=== PATIENT | female | born 1995 | race Caucasian/White ===

== ENCOUNTER 2017-03-16 19:12 | Observation (INO) | payer OTHER ==
[~2017-03-16] VITALS: Ht 177.8 cm; Wt 103.3 kg
--- NOTE | 2017-03-16 20:40 | DIAGNOSTIC IMAGING REPORT ---
PROCEDURE: CT ABD/PELVIS WITH CONTRAST INDICATION: Mild right abdominal pain. Recent laparoscopic cholecystectomy. TECHNIQUE: 145 ml of Isovue 300 were injected intravenously and axial images were obtained of the entire abdomen and pelvis with sagittal and coronal reformations. COMPARISON: None. FINDINGS: ABDOMEN: Status post cholecystectomy (surgical clips) with normal postoperative appearance. Liver is normal. Mild to moderate splenomegaly (15.3 cm). Pancreas, kidneys, and aorta are normal. Bowel pattern is normal, including appendix. PELVIS: The 4.2 cm right ovarian cyst (just above the bladder). No evidence of free fluid. Left ovary is normal. There is a T-shaped IUD within the endometrial canal. IMPRESSION: 1. Status post cholecystectomy with normal postoperative appearance. 2. Mild to moderate splenomegaly (15.3 cm). 3. Normal appendix. 4. There is a 4.5 right ovarian cyst. No evidence of free fluid. 5. There is a T-shaped IUD within the endometrial canal. 6. Findings discussed with CANDICE Webb. All CT scans at this facility use dose modulation, iterative reconstruction, and/or weight-based dosing when appropriate to reduce radiation dose to as low as reasonably achievable.
--- NOTE | 2017-03-16 21:49 | ED CLINICAL REPORT ---
Clinical Report - Physicians/Mid Levels [facility] [address] [place] [address] 03/16/2017 19:12 Patient: LYNDA VUONG Time Seen: 19:28; initial patient contact, initial documentation, patient care assumed. Arrived- By private vehicle. Historian- patient. HISTORY OF PRESENT ILLNESS Chief Complaint: VOMITING and DIARRHEA. This started today and is still present. It was abrupt in onset. No recent travel. She has had nausea and moderate, constant abdominal pain. The pain is described as generalized. She has had severe vomiting. The vomiting has occurred numerous times and has been bilious and blood-tinged. No feculent emesis, coffee-grounds emesis, frankly bloody emesis or unusually dark emesis. She has had moderate diarrhea (x5-6 episodes). This has occurred several times. It has been watery. No bloody, mucous containing or blood-tinged diarrhea. No black stools, constipation, flank pain, history of possible bad food exposure or known contact with a sick individual. No change in routine. Has not recently been camping or on antibiotics. The illness is described as moderate. Similar symptoms previously: Chronically, milder. Recent medical care: Not recently seen/assessed. REVIEW OF SYSTEMS The patient has had a subjective fever with chills. No muscle aches, difficulty with urination, dark urine, chest pain or difficulty breathing. Denies current . All systems otherwise negative, except as recorded above. PAST HISTORY See nurses notes. PROBLEMS: no known problems. ADDITIONAL SURGERIES: Adenoidectomy. Cholecystectomy. --19:22 Kayy Bullard R.N. SOCIAL HISTORY Light tobacco smoker. No alcohol use or drug use. No recent travel. Is a local resident. FAMILY HISTORY Negative. ADDITIONAL NOTES The nursing notes have been reviewed with agreement regarding the chief complaint, HPI, ROS, PMH and patient medications and allergies. PHYSICAL EXAM Vital Signs: 03/16/2017 19:16 BP: 144/88. HR: 90. RR: 18. O2 saturation: 99%. Temp: 99.1 F. Pain level now: 10/10. Have been reviewed as normal and appear to be correct. Appearance: Alert. Oriented X3. No acute distress. Eyes: Pupils equal, round and reactive to light. Eyes normal inspection. Neck: Normal inspection. Neck supple. CVS: Normal heart rate and rhythm. Heart sounds normal. Pulses normal. Respiratory: No respiratory distress. Breath sounds normal. Abdomen: Soft and nontender. Bowel sounds normal. No organomegaly. No mass. Back: Normal inspection. Skin: Skin warm and dry. Normal skin color. No rash. Normal skin turgor. Extremities: Extremities exhibit normal ROM. No lower extremity edema. Neuro: Oriented X 3. No motor deficit. No sensory deficit. LABS, X-RAYS, AND EKG Abdominal CT: . IMPRESSION: 1. Status post cholecystectomy with normal postoperative appearance. 2. Mild to moderate splenomegaly (15.3 cm). 3. Normal appendix. 4. There is a 4.5 right ovarian cyst. No evidence of free fluid. 5. There is a T-shaped IUD within the endometrial canal. 6. Findings discussed with CANDICE Webb. All CT scans at this facility use dose modulation, iterative reconstruction, and/or weight-based dosing when appropriate to reduce radiation dose to as low as reasonably achievable. Electronically Final signed by:Samuel Cooper MD 03/16/2017 8:34:49 PM. The study was interpreted by the radiologist and discussed with the radiologist. Interpretation time: 20:39. Laboratory Tests: CBC w Diff: (JUNG: 03/16/2017 19:25) ( MsgRcvd 03/16/2017 19:42) Final results Test Result Flag Units (Reference) WHITE BLOOD COUNT 12.9 H K/uL (4.5-11.5) RED BLOOD COUNT 5.42 H M/uL (4.00-5.20) HEMOGLOBIN 16.1 H gm/dL (12.0-16.0) HEMATOCRIT 48.2 H % (36.0-46.0) MEAN CELL VOLUME 89 fL (80-100) MEAN CORPUSCULAR HGB 30 pg (26-34) MEAN CORPUSCULAR HGB CONC 33 g/dL (31-37) RED CELL DISTRIBUTION WIDTH 14.7 % (11.6-14.8) PLATELET COUNT 578 H K/uL (150-400) NEUTROPHIL % 75.1 H % (50-75) LYMPH % 17.3 L % (25-40) MONO % 5.1 % (3-14) EOSINOPHIL % 1.6 % (0-4) BASOPHIL % 0.9 % (0-2) PT with INR: (JUNG: 03/16/2017 19:25) ( [facility] 03/16/2017 19:42) Final results Test Result Flag Units (Reference) INR 1.1 (0.8-1.2) Low Intensity Therapy: INR 1.5-2.0 PT range 18.5-23.1Mod.Intensity Therapy: INR 2.0-3.0 PT range 23.1-31.5High Intensity Therapy: INR 2.5-3.5 PT range 27.4-35.5High Intensity Therapy 2: INR 3.0-4.0 PT range 31.5-39.3 CMP: (JUNG: 03/16/2017 19:25) ( [facility] 03/16/2017 19:55) Final results Test Result Flag Units (Reference) GLUCOSE 89 mg/dL (70-110) BUN 12 mg/dL (7-18) CREATININE 0.9 mg/dL (0.6-1.3) Estimated GFR >60 mL/min Estimated GFR- >60 mL/min Note: Persistent reduction over 3 months in eGFR<60 mL/min/1.73 m2 defines CKD. Patients with eGFR values>=60 mL/min/1.73 m2 may also have CKD if evidence ofpersistent proteinuria. Additional information may be foundat www.kidney.org. SODIUM 143 mmol/L (136-145) POTASSIUM 3.5 mmol/L (3.5-5.1) CHLORIDE 104 mmol/L (98-107) CARBON DIOXIDE 27 mmol/L (21-32) CALCIUM 9.2 mg/dL (8.5-10.1) TOTAL PROTEIN 8.0 g/dL (6.4-8.2) ALBUMIN 4.4 g/dL (3.3-5.0) BILIRUBIN, TOTAL 1.5 H mg/dL (0.0-1.0) ALKALINE PHOSPHATASE 53 U/L (46-116) AST (SGOT) 6 L U/L (15-37) ALT (SGPT) 17 U/L (12-78) LIPASE 140 U/L (73-393) AMYLASE 60 U/L (25-115) BETA HCG, QUANTITATIVE Test not performed mIU/mL CANCELLED PER REQUEST.REFERENCE RANGE:Adult Males: <2 mIU/mLNon- Females: <6 mIU/mL Females:Approximate Approximate hCGGestational Age Range (mIU/mL) 0-1 week 0-501-2 weeks 40-3002-3 weeks 100-95677-8 weeks 500-14931-0 months 5,000-200,0002-3 months 10,000-100,0002nd trimester 3,000-50,0003rd trimester 1,000-50,000 . PROGRESS AND PROCEDURES Course of Care: 20:28 03/16/17. pt back from CT and still vomiting, Reglan ordered 2039. pt informed of results and tx plan discussed, mom at bedside and now telling me pt has had intermittent vomiting since Dec since gallbladder was removed 21:11 03/16/17. nurse reporting pt wants pain meds and is still vomiting. Discussed case with on-call health care provider, (Dr Quick here, aware of need for admit). Reviewed test results. Agreed upon treatment plan and decision to admit. Health care provider will see patient in ED. Differential Diagnosis: I considered gastritis, peptic ulcer disease, gastroesophageal reflux disease, gastroparesis, Crohn's disease, ulcerative colitis, small bowel obstruction, colonic obstruction, colon cancer, gastroenteritis, pancreatitis, viral syndrome, enterocolitis, urinary tract infection, hepatitis, sepsis, drugs and as a possible cause of vomiting in this patient. This is a partial list of diagnoses considered. Above considerations are based on history, physical exam, reassessment, laboratory data and other information. Differential diagnosis was discussed with patient. Disposition: Admitted to Acute Care. 21:49. Condition: good and stable. CLINICAL IMPRESSION Vomiting with nausea (irretractable). No dehydration or volume depletion. Not intractable or bilious. (Electronically signed by Vandana Vega A.R.N.P. 03/17/2017 12:05)
--- NOTE | 2017-03-16 21:49 | ED NURSING NOTES ---
Clinical Report - Nurses [place] [place] [address] [place] [address] 03/16/2017 19:12 Patient: LYNDA VUONG TRIAGE Triage time 19:16. Acuity: LEVEL 3. Chief Complaint: ABDOMINAL PAIN, NAUSEA, VOMITING and DIARRHEA and FEVER and CHILLS. --19:24 Kayy Bullard R.N. 19:16 03/16/17. BP: 144/88 taken on the left arm, while lying. HR: 90 (regular and normal rate). RR: 18 (regular and unlabored). O2 saturation: 99% on room air. Temp: 99.1 F (oral). Pain level now: 06/25. --19:24 Kayy Bullard R.N. Weight: 99.7 kg stated. Height/Length: 70 inches Per Patient. BMI: 31.5. --19:20 Kayy Bullard R.N. Medications None. --19:22 Kayy Bullard R.N. Allergies No Known Drug Allergy. --19:22 Kayy Bullard R.N. History Arrived by private vehicle. Historian: patient. Accompanied by family. Primary physician (formerly [facility], [facility]). This started today. Onset. (0700 AM). ( N/V/D since this morning, RUQ pain vomiting bright yellow emesis all day). PAST MEDICAL HX: Immunizations: up-to-date. Last normal menstrual period- no periods. Sexual history - sexually active. Uses an intrauterine device. SOCIAL HX: Light tobacco smoker (cigarette)- less than 1/2 a pack per day. No alcohol use or drug use. No infectious disease exposure. No known contact with a sick individual. ABUSE ASSESSMENT: No report of abuse. SELF HARM ASSESSMENT: A self harm assessment was performed. The patient answered "no" to the question "Have you recently felt down, depressed, or hopeless?", "Have you noticed less interest or pleasure in doing things?", "Do you have thoughts of harming or killing yourself?", "Are you here because you tried to hurt yourself?", "Have you ever tried to hurt yourself before today?", "Have you recently had thoughts about harming or killing others?" and "Do you have any dangerous items in your possession?". --24 Kayy Bullard R.N. PROBLEMS: no known problems. ADDITIONAL SURGERIES: Adenoidectomy. Cholecystectomy. --: Kayy Bullard R.N. Interventions ID band on patient. To treatment room. --:24 Kayy Bullard R.N. PHYSICAL ASSESSMENT To room via wheelchair. GENERAL / NEURO / PSYCH: Alert. Oriented X 4. Appears in pain and in distress. HEENT: Mucous membranes are pink. RESPIRATORY: Respirations not labored. Breath sounds within normal limits. CVS: Normal sinus rhythm noted. Capillary refill less than 2 seconds. GI / : The patient has had constant nausea. Bilious emesis noted. Has vomited numerous times. Abdominal tenderness in the right upper quadrant. Bowel sounds within normal limits. SKIN: Skin is warm and dry. --19:25 Kayy Bullard R.N. NURSING PROGRESS NOTES Patient gowned. Two patient identifiers checked. Call light placed in reach. Side rails up x 1. Bed placed in lowest position. Brakes of bed on. --19: Kayy Bullard R.N. Patient ready for evaluation- chart flagged. --19:25 Kayy Bullard R.N. 03/16/2017 Site #1 started via IV in the right antecubital space with an 20g angiocath, with aseptic technique and good blood return; one attempt. Blood drawn: rainbow set. Labeled in the presence of the patient and sent to the lab. Saline lock flushed with 10 mL saline. -- Marilee Gallegos 03/16/2017 Started bag #1 1000 mL IV Fluids IV NS (Saline); at 1000 mL/hr over 1 hour(s) via site #1. Allergies verified and confirmed 5 rights. IV patency established. IV site checked: no pain, redness, or swelling. IV flushed thoroughly pre- and post-medication administration. --27 Marilee Gallegos 2017 Zofran (Ondansetron HCl) IVP 4 mg given over 2 minute(s) via site #1. Allergies verified and confirmed 5 rights. IV patency established. IV site checked: no pain, redness, or swelling. IV flushed thoroughly pre- and post-medication administration. IVP given by RN. --19:34 Kayy Bullard R.N. 19:40 03/16/2017 Zofran (Ondansetron HCl) IVP 4 mg given over 2 minute(s) via site #1. Allergies verified and confirmed 5 rights. IV patency established. IV site checked: no pain, redness, or swelling. IV flushed thoroughly pre- and post-medication administration. IVP given by RN. --19:41 Kayy Bullard R.N. 20:00 03/16/2017 Toradol IVP 30 mg given over 2 minute(s) via site #1. Allergies verified and confirmed 5 rights. IV patency established. IV site checked: no pain, redness, or swelling. IV flushed thoroughly pre- and post-medication administration. IVP given by RN. --20:03 Kayy Bullard R.N. 19:55. ( PA notified orders received). GI / : The patient reports abdominal pain located in the RUQ is still present and worsening and currently severe, constant, described as sharp and associated with nausea and vomiting. --20:04 Kayy Bullard R.N. ( Mother at bedside, pt continues to vomit despite antiemetic, pt c/o severe abd pain Toradol given per order, will continue to monitor). --20:06 Kayy Bullard R.N. Patient transported to [place] by stretcher with tech. (20:11). --20:12 Kayy Bullard R.N. 20:50 03/16/2017 Site #2 started via IV in the left antecubital space with an 20g angiocath, with aseptic technique and good blood return; one attempt. Held. Saline lock flushed with 10 mL saline. --20:50 Marilee Gallegos 20:51 03/16/2017 Site #1 removed upon discharge. Catheter intact. Bandaid applied (CT reports the IV built up pressure and was no longer patent. Patient denies any pain at the IV site and there is no sign of infiltration present.). --20:51 Marilee Gallegos 20:58 03/16/2017 Reglan (Metoclopramide HCl) IVP 10 mg given over 2 minute(s) via site #2. Allergies verified and confirmed 5 rights. IV patency established. IV site checked: no pain, redness, or swelling. IV flushed thoroughly pre- and post-medication administration. IVP given by RN. --21:00 Kayy Bullard R.N. 21:25 03/16/2017 Morphine IVP 4 mg given over 2 minute(s) via site #2. Allergies verified, confirmed 5 rights and sedative warning given to the patient and patient's family. IV patency established. IV site checked: no pain, redness, or swelling. IV flushed thoroughly pre- and post-medication administration. IVP given by RN. --21:27 Kayy Bullard R.N. 21:03/16/2017 PHENERGAN (Promethazine HCl) IVP 12.5 mg given over 4 minute(s) via site #2. Allergies verified and confirmed 5 rights. IV patency established. IV site checked: no pain, redness, or swelling. IV flushed thoroughly pre- and post-medication administration. IVP given by RN. --21:27 Kayy Bullard R.N. 21:03/16/2017 Reglan IVP Response: no adverse reaction symptoms are the same. The patient feels the same. --21:28 Kayy Bullard R.N. Patient ID band checked for patient name and birthdate: patient confirmed. Instructions provided to collect clean catch urine and patient verbalized understanding. Clean catch urine collected with return of orange-colored cloudy urine; sample sent to lab for urinalysis, drug screen and HCG. Specimen labeled in the presence of the patient. Patient ID band checked for patient name and birthdate: patient confirmed. Throat swab obtained for rapid strep; labeled in the presence of the patient and sent to lab. Overall patient status is the same- she states feels the same. GI / : The patient reports vomiting is still present and currently moderate in severity, with emesis that is currently described as bilious. Two patient identifiers checked. Call light placed in reach. Side rails up x 2. Bed placed in lowest position. Brakes of bed on. --21:31 Kayy Bullard R.N. Overall patient status is improved- she states feels better. GI / : Bowel sounds within normal limits. --22:52 Kayy Bullard R.N. 22:45 03/16/17. BP: 122/69 taken on the right arm, while lying. HR: 52 (regular and bradycardic). RR: 18. O2 saturation: 99%. Temp: deferred. Pain level now: 02/23. --22:52 Kayy Bullard R.N. DISPOSITION / DISCHARGE Report was given to a nurse via a phone call. Report included patient's care, treatment, medications, reviewed medication reconcilliation, and condition (including any recent changes or anticipated changes). All questions were answered. Report was acknowledged and care was transferred. (Troy @2111). ( Report call to Troy). Patient's personal items; items were placed in belongings bag, given to the patient and transported with the patient. --22:54 Kayy Bullard R.N. 21:27 03/16/2017 IV Fluids IV NS Discontinued: bag #1 completed. Total amount infused: 1000 mL. IV patency established. IV site checked: no pain, redness, or swelling. IV flushed thoroughly. --22:55 Kayy Bullard R.N. 22:54 03/16/2017 Site #[address] upon admission; patent, no pain and no signs of infection or infiltration. Good blood return present. Flushed with 10 mL saline; flushes easily. --22:54 Kayy Bullard R.N. Departure time: 2337. Transported via stretcher by [employer] with IV. ( Floor called stated ready for pt at 2333, pt transported). --23:38 Kayy Bullard R.N. 23:35 03/16/17. BP: 128/64. HR: 61 (regular). RR: 18. O2 saturation: 95% on room air. Temp: 99.2 F (oral). Pain level now: 10/26. --23:38 Kayy Bullard R.N. Locked/Released at 03/16/2017 23:38 by Kayy Bullard R.N.
--- NOTE | 2017-03-16 21:49 | ED ORDER SUMMARY ---
..... Patient: LYNDA VUONG OrderSheet [facility] VisitID: [id number] [place] [address] 21y, F Registration Date/Time: 03/16/2017 ORDER SHEET Weight: 99.7 kg (stated) Allergies: No Known Drug Allergy GENERAL ORDERS: CBC w Diff Urgent (19:03/16/2017 CBradburn R.N. per protocol) (19:26 CBradburn R.N.) CMP Urgent (19:03/16/2017 CBradburn R.N. per protocol) (19:26 CBradburn R.N.) UA-Culture if indicated Urgent (19:03/16/2017 CBradburn R.N. per protocol) (Ack 19:33 AMcQuoid ER Tech1) (21:27 CBradburn R.N.) PT with INR Urgent (19:03/16/2017 CBradburn R.N. per protocol) (19:26 CBradburn R.N.) (Cancelled: Other19:34 HBivens A.R.N.P.) Amylase Urgent (19:26 03/16/2017 CBradburn R.N. per protocol) (19:26 CBradburn R.N.) Lipase Urgent (19:03/16/2017 CBradburn R.N. per protocol) (19:26 CBradburn R.N.) Urine Urgent (19:03/16/2017 CBradburn R.N. per protocol) (Ack 19:33 AMcQuoid ER Tech1) (21:27 CBradburn R.N.) Serum Quantitative Urgent (19:26 03/16/2017 CBradburn R.N. per protocol) (Ack 19:33 AMcQuoid ER Tech1) (19:34 HBivens A.R.N.P.) (Cancelled: Other19:34 HBivens A.R.N.P.) CT Abd/Pel w Cont (No) (pending) Urgent (19:35 03/16/2017 HBivens A.R.N.P.) (Ack 19:36 AMcQuoid ER Tech1) (20:11 CBradburn R.N.) Monoscreen Urgent (20:49 03/16/2017 HBivens A.R.N.P.) (20:51 AMcQuoid ER Tech1) Culture, Strep Screen Urgent (20:49 03/16/2017 HBivens A.R.N.P.) (Ack 20:51 AMcQuoid ER Tech1) (21:14 CBradburn R.N.) Urine Drug Screen Urgent (21:38 03/16/2017 HBivens A.R.N.P.) (Ack 21:40 AMcQuoid ER Tech1) (22:36 HSoule) MEDICATION ORDERS: Phenergan IV 12.5 mg (HIGH ALERT MEDICATION, NOW) (21:10 03/16/2017 HBivens A.R.N.P.) (21:27 CBradburn R.N.) IV FLUIDS: IV NS : initial bolus 1000 mL (1000 mL/hr), then 1000 mL/hr for X1 (NOW) (19:26 03/16/2017 CBradburn R.N. per protocol) (19:27 HSoule) Zofran IV 4 mg (NOW) (19:32 03/16/2017 CBradburn R.N. per protocol) (19:34 CBradburn R.N.) Zofran IV 4 mg (NOW) (19:37 03/16/2017 HBivens A.R.N.P.) (Ack 19:38 HSoule) (19:41 CBradburn R.N.) Toradol IV 30 mg (NOW) (19:56 03/16/2017 HBivens A.R.N.P.) (20:02 CBradburn R.N.) Reglan IV 10 mg (NOW) (20:28 03/16/2017 HBivens A.R.N.P.) (21:00 CBradburn R.N.) Morphine IV 4 mg (HIGH ALERT MEDICATION, NOW) (21:10 03/16/2017 HBivens A.R.N.P.) (21:27 CBradburn R.N.) ORDER SHEET NOTES: [Electronically signed by Kayy Bullard R.N. (23:38 03/16/2017)] [Electronically signed by Vandana VegaP. (12:05 03/17/2017)] [Electronically locked/signed by Kayy Bullard R.N. (23:38 03/16/2017)]
--- NOTE | 2017-03-16 21:49 | ED ORDER SUMMARY ---
..... Patient: LYNDA VUONG OrderSheet [facility] VisitID: [id number] [place] [address] 21y, F Registration Date/Time: 03/16/2017 ORDER SHEET Weight: 99.7 kg (stated) Allergies: No Known Drug Allergy GENERAL ORDERS: CBC w Diff Urgent (19:03/16/2017 CBradburn R.N. per protocol) (19:26 CBradburn R.N.) CMP Urgent (19:03/16/2017 CBradburn R.N. per protocol) (19:26 CBradburn R.N.) UA-Culture if indicated Urgent (19:03/16/2017 CBradburn R.N. per protocol) (Ack 19:33 AMcQuoid ER Tech1) (21:27 CBradburn R.N.) PT with INR Urgent (19:03/16/2017 CBradburn R.N. per protocol) (19:26 CBradburn R.N.) (Cancelled: Other19:34 HBivens A.R.N.P.) Amylase Urgent (19:26 03/16/2017 CBradburn R.N. per protocol) (19:26 CBradburn R.N.) Lipase Urgent (19:03/16/2017 CBradburn R.N. per protocol) (19:26 CBradburn R.N.) Urine Urgent (19:03/16/2017 CBradburn R.N. per protocol) (Ack 19:33 AMcQuoid ER Tech1) (21:27 CBradburn R.N.) Serum Quantitative Urgent (19:26 03/16/2017 CBradburn R.N. per protocol) (Ack 19:33 AMcQuoid ER Tech1) (19:34 HBivens A.R.N.P.) (Cancelled: Other19:34 HBivens A.R.N.P.) CT Abd/Pel w Cont (No) (pending) Urgent (19:35 03/16/2017 HBivens A.R.N.P.) (Ack 19:36 AMcQuoid ER Tech1) (20:11 CBradburn R.N.) Monoscreen Urgent (20:49 03/16/2017 HBivens A.R.N.P.) (20:51 AMcQuoid ER Tech1) Culture, Strep Screen Urgent (20:49 03/16/2017 HBivens A.R.N.P.) (Ack 20:51 AMcQuoid ER Tech1) (21:14 CBradburn R.N.) Urine Drug Screen Urgent (21:38 03/16/2017 HBivens A.R.N.P.) (Ack 21:40 AMcQuoid ER Tech1) (22:36 HSoule) MEDICATION ORDERS: Phenergan IV 12.5 mg (HIGH ALERT MEDICATION, NOW) (21:10 03/16/2017 HBivens A.R.N.P.) (21:27 CBradburn R.N.) IV FLUIDS: IV NS : initial bolus 1000 mL (1000 mL/hr), then 1000 mL/hr for X1 (NOW) (19:26 03/16/2017 CBradburn R.N. per protocol) (19:27 HSoule) Zofran IV 4 mg (NOW) (19:32 03/16/2017 CBradburn R.N. per protocol) (19:34 CBradburn R.N.) Zofran IV 4 mg (NOW) (19:37 03/16/2017 HBivens A.R.N.P.) (Ack 19:38 HSoule) (19:41 CBradburn R.N.) Toradol IV 30 mg (NOW) (19:56 03/16/2017 HBivens A.R.N.P.) (20:02 CBradburn R.N.) Reglan IV 10 mg (NOW) (20:28 03/16/2017 HBivens A.R.N.P.) (21:00 CBradburn R.N.) Morphine IV 4 mg (HIGH ALERT MEDICATION, NOW) (21:10 03/16/2017 HBivens A.R.N.P.) (21:27 CBradburn R.N.) ORDER SHEET NOTES: [Electronically signed by Kayy Bullard R.N. (23:38 03/16/2017)] [Electronically signed by Vandana VegaP. (12:05 03/17/2017)] [Electronically locked/signed by Kayy Bullard R.N. (23:38 03/16/2017)]
--- NOTE | 2017-03-16 23:28 | History & Physical Report ---
History Chief Complaint Intractable vomiting History of Present Illness This is a 21-year-old white female who woke up this morning with vomiting continued all day along several times a day along with the loose stool again several times a day associated with the abdominal pain in the lower abdomen. She did not have any fever but complains of chills and sweats. No history of recent travel or unusual food no bloody of sick around her. Patient has this similar symptoms since November on and off after she had her cholecystectomy Patient History 1. Gastroenteritis 2. History of cholecystectomy Social History Patient is single, has 1 kid, lives with his parents. Smoking: One pack a day for 7 years, alcohol: None, illicit drugs: None. Family History Relation not specified for: Breast Cancer Colon Cancer Diabetes Hypertension Medications and Allergies Medications Current Medications Sig/Lydia Start time Last Medication Dose Route Stop Time Status Admin IV IV no home medication Dose Instructions: (1)Ondansetron HCl: 4 - 8 MG Allergies Coded Allergies: NKA (03/16/17) Allergies No Known Drug Allergy. --19:22 Kayy Bullard, R.N. Review of Systems Other As lost some weight last 2 months, no difficulty with vision or hearing, nasal congestion but no cough no runny nose no sore throat, no chest pain no dyspnea no palpitations, no dysuria or frequency or incontinence, complains of generalized myalgia, complains of headache and dizziness and also tingling and numbness in the hands no localized weakness no syncope Physical Exam General Appearance Alert, Oriented X3, Cooperative, Mild distress HEENT Normal exam Lungs Clear to auscultation Neck Supple, No JVD, 2+ carotid pulse wo bruit Cardiovascular Regular rate and rhythm, Normal S1 and S2, No murmurs, gallops, rubs Abdomen Normal bowel sounds (tenderness inlower abdomen), Soft Extremities No cyanosis, No edema, Normal pulses Skin No Rashes, No Significant Lesions Neurological Normal speech, Reflexes 2+ and equal, Cranial nerves intact, Strength 5/5 x4 ext's Psych/Mental Status Mental status normal LAB Results Laboratory Tests 03/16 03/16 03/16 2125 2118 2118 Toxicology Urine Opiates Screen (NEGATIVE) NEGATIVE Urine Methadone Screen (NEGATIVE) NEGATIVE Ur Barbiturates Screen (NEGATIVE) NEGATIVE U Amphetamin/Meth Scrn (NEGATIVE) NEGATIVE MDMA (Ecstasy) Screen (NEGATIVE) NEGATIVE U Benzodiazepines Scrn (NEGATIVE) NEGATIVE Urine Cocaine Screen (NEGATIVE) NEGATIVE U Cannabinoids Screen (NEGATIVE) POSITIVE Urines Urine Color YELLOW Urine Appearance TURBID Urine pH (5.0 - 8.0) 8.5 Ur Specific [place] (1.010 - 1.030) 1.010 Urine Protein (NEGATIVE) NEGATIVE Urine Ketones (NEGATIVE) 2+ Urine Blood (NEGATIVE) NEGATIVE Urine Nitrite (NEGATIVE) NEGATIVE Urine Bilirubin (NEGATIVE) NEGATIVE Urine Urobilinogen (0.2 - 1.0 EU/dL) 1.0 Ur Leukocyte Esterase (NEGATIVE) NEGATIVE Urine RBC (0 - 1 rbc/hpf) RARE Urine WBC (0 - 1 wbc/hpf) 0-1 Ur Epithelial Cells (0 - 5 EPI/hpf) 0-1 Urine Bacteria (NONE SEEN) NONE SEEN Urine Glucose (NEGATIVE) NEGATIVE Urine Test NEGATIVE Urine Comment CULT NOT INDICATED 03/16 03/16 193 192 Chemistry Plasma Sodium (136 - 145 mmol/L) 143 Plasma Potassium (3.5 - 5.1 mmol/L) 3.5 Plasma Chloride (98 - 107 mmol/L) 104 CO2 (Enzymatic) (21 - 32 mmol/L) 27 BUN (7 - 18 mg/dL) 12 Creatinine (0.6 - 1.3 mg/dL) 0.9 Est GFR ( Amer) (mL/min) >60 Est GFR (Non-Af Amer) (mL/min) >60 Glucose (70 - 110 mg/dL) 89 Plasma Calcium (8.5 - 10.1 mg/dL) 9.2 Total Bilirubin (0.0 - 1.0 mg/dL) 1.5 AST (15 - 37 U/L) 6 ALT (12 - 78 U/L) 17 Alkaline Phosphatase (46 - 116 U/L) 53 Total Protein (6.4 - 8.2 g/dL) 8.0 Albumin (3.3 - 5.0 g/dL) 4.4 Amylase (25 - 115 U/L) 60 Lipase (73 - 393 U/L) 140 Beta HCG, Quant (mIU/mL) TNP Coagulation INR (0.8 - 1.2) 1.1 Hematology WBC (4.5 - 11.5 K/uL) 12.9 RBC (4.00 - 5.20 M/uL) 5.42 Hgb (12.0 - 16.0 gm/dL) 16.1 Hct (36.0 - 46.0 %) 48.2 MCV (80 - 100 fL) 89 MCH (26 - 34 pg) 30 RDW (11.6 - 14.8 %) 14.7 Neut % (Auto) (50 - 75 %) 75.1 Lymph % (Auto) (25 - 40 %) 17.3 [place] % (Auto) (3 - 14 %) 5.1 Eos % (Auto) (0 - 4 %) 1.6 Baso % (Auto) (0 - 2 %) 0.9 Plt Count, EDTA (150 - 400 K/uL) 578 PUBS MCHC (31 - 37 g/dL) 33 Serology Monoscreen (NEGATIVE) NEGATIVE Microbiology Date/Time Procedure - Status Source Growth 03/16 2118 Group A Streptococcus Rapid Screen - RES THROAT Assessment and Plan Problem List 1. Gastroenteritis Plan Patient will be admitted to observation and will be treated with IV hydration and IV Zofran we will monitor electrolytes
[2017-03-16 23:58] VITALS: BP 100/53
[2017-03-16 23:59] VITALS: BP 102/48
[2017-03-17 02:37] VITALS: BP 126/51
[2017-03-17] MEDS ORDERED: MULTIPLE VITAMIN PO (03:07)
[2017-03-17 07:21] VITALS: BP 103/46
--- NOTE | 2017-03-17 07:21 | Progress Note ---
Subjective General Note Date: March 17, 2017 Admission Date: March 16, 2017 Hospital Day: 2 PCP: None Status: Observation, ACU Advanced Directive: FULL CODE Room: 203-B Admission History: The patient is a 21-year-old white female with a significant past mental history of cholelithiasis status post cholecystectomy, illicit drug use-marijuana who presented to [facility] emergency department secondary to intractable nausea and vomiting. [facility] ER evaluation was consistent with intractable nausea and vomiting , dehydration. Secondary to the above, the patient was admitted by Jordi Quick M.D. for further evaluation and treatment. For other history present illness, past medical history, family history, social history, review of systems, and admission physical examination please see the patient's history and physical examination and ER visit note in the patient's medical record. Subjective: The patient states that is improved at this time. No vomiting since admission last night. No significant abdominal pain. No fever or chills. Patient requests: None Medications and Allergies Medications Current Medications Sig/Lydia Start time Last Medication Dose Route Stop Time Status Admin Famotidine/Sodium 20 MG Q12HR 03/17 2100 AC Chloride IV Nicotine 7 MG QAM 03/17 0900 AC 03/17 TOP 0900 Dextrose/Sodium 1,000 ML ASDIRECTED 03/16 2300 AC 03/17 Chloride IV 0533 Hydromorphone HCl 1 MG Q1H PRN 03/16 2300 AC 03/17 IV 0900 Ondansetron HCl See Dose Q4H PRN 03/16 2300 AC 03/17 Insts (1) IV 0900 Dose Instructions: (1)Ondansetron HCl: 4 - 8 MG Allergies Coded Allergies: NKA (03/16/17) Allergies No Known Drug Allergy. --19:22 Kayy Bullard R.N. Reconcile Medications Scheduled Medications Multiple Vitamin TAB 1 TAB PO DAILY (Reported) Physical Exam Vital Signs / I&Os Vital Signs Date Time Temp Pulse Resp B/P Pulse O2 O2 Flow FiO2 Ox Delivery Rate 03/17 0237 99.0 50 14 126/51 97 Room Air 03/17 0030 Room Air 03/16 2359 102/48 03/16 2358 99.7 63 16 100/53 98 Room Air 0.0 I&O 03/17 0000 03/16 1600 03/16 0800 Intake Total Output Total Balance General Appearance Alert, Oriented X3, Cooperative, No acute distress Lungs Normal air movement, minimal expiratory wheezes Cardiovascular Regular rate and rhythm, Normal S1 and S2 Abdomen Normal bowel sounds, Soft, No tenderness, No guarding Extremities No cyanosis, No clubbing, No edema Neurological Cranial nerves intact, No lateralizing signs Psych/Mental Status Mental status normal, Mood normal LAB Results Laboratory Tests 03/17 03/16 03/16 0550 2125 2118 Chemistry Plasma Sodium (136 - 145 mmol/L) 145 Plasma Potassium (3.5 - 5.1 mmol/L) 3.9 Plasma Chloride (98 - 107 mmol/L) 110 CO2 (Enzymatic) (21 - 32 mmol/L) 26 BUN (7 - 18 mg/dL) 13 Creatinine (0.6 - 1.3 mg/dL) 0.7 Est GFR ( Amer) (mL/min) >60 Est GFR (Non-Af Amer) (mL/min) >60 Glucose (70 - 110 mg/dL) 122 Plasma Calcium (8.5 - 10.1 mg/dL) 8.3 Plasma Magnesium (1.8 - 2.4 mg/dL) 2.0 Hematology WBC (4.5 - 11.5 K/uL) 13.7 RBC (4.00 - 5.20 M/uL) 4.58 Hgb (12.0 - 16.0 gm/dL) 13.4 Hct (36.0 - 46.0 %) 40.8 MCV (80 - 100 fL) 89 MCH (26 - 34 pg) 29 RDW (11.6 - 14.8 %) 14.9 Neut % (Auto) (50 - 75 %) 79.8 Lymph % (Auto) (25 - 40 %) 14.0 [place] % (Auto) (3 - 14 %) 5.5 Eos % (Auto) (0 - 4 %) 0.2 Baso % (Auto) (0 - 2 %) 0.5 Plt Count, EDTA (150 - 400 K/uL) 429 PUBS MCHC (31 - 37 g/dL) 33 Toxicology Urine Opiates Screen (NEGATIVE) NEGATIVE Urine Methadone Screen (NEGATIVE) NEGATIVE Ur Barbiturates Screen (NEGATIVE) NEGATIVE U Amphetamin/Meth Scrn (NEGATIVE) NEGATIVE MDMA (Ecstasy) Screen (NEGATIVE) NEGATIVE U Benzodiazepines Scrn (NEGATIVE) NEGATIVE Urine Cocaine Screen (NEGATIVE) NEGATIVE U Cannabinoids Screen (NEGATIVE) POSITIVE Urines Urine Test NEGATIVE 03/16 192 Chemistry Plasma Sodium (136 - 145 mmol/L) 143 Plasma Potassium (3.5 - 5.1 mmol/L) 3.5 Plasma Chloride (98 - 107 mmol/L) 104 CO2 (Enzymatic) (21 - 32 mmol/L) 27 BUN (7 - 18 mg/dL) 12 Creatinine (0.6 - 1.3 mg/dL) 0.9 Est GFR ( Amer) (mL/min) >60 Est GFR (Non-Af Amer) (mL/min) >60 Glucose (70 - 110 mg/dL) 89 Plasma Calcium (8.5 - 10.1 mg/dL) 9.2 Total Bilirubin (0.0 - 1.0 mg/dL) 1.5 AST (15 - 37 U/L) 6 ALT (12 - 78 U/L) 17 Alkaline Phosphatase (46 - 116 U/L) 53 Total Protein (6.4 - 8.2 g/dL) 8.0 Albumin (3.3 - 5.0 g/dL) 4.4 Amylase (25 - 115 U/L) 60 Lipase (73 - 393 U/L) 140 Beta HCG, Quant (mIU/mL) TNP Coagulation INR (0.8 - 1.2) 1.1 Hematology WBC (4.5 - 11.5 K/uL) 12.9 RBC (4.00 - 5.20 M/uL) 5.42 Hgb (12.0 - 16.0 gm/dL) 16.1 Hct (36.0 - 46.0 %) 48.2 MCV (80 - 100 fL) 89 MCH (26 - 34 pg) 30 RDW (11.6 - 14.8 %) 14.7 Neut % (Auto) (50 - 75 %) 75.1 Lymph % (Auto) (25 - 40 %) 17.3 [place] % (Auto) (3 - 14 %) 5.1 Eos % (Auto) (0 - 4 %) 1.6 Baso % (Auto) (0 - 2 %) 0.9 Plt Count, EDTA (150 - 400 K/uL) 578 PUBS MCHC (31 - 37 g/dL) 33 Serology Monoscreen (NEGATIVE) NEGATIVE Urines Urine Color YELLOW Urine Appearance TURBID Urine pH (5.0 - 8.0) 8.5 Ur Specific [place] (1.010 - 1.030) 1.010 Urine Protein (NEGATIVE) NEGATIVE Urine Ketones (NEGATIVE) 2+ Urine Blood (NEGATIVE) NEGATIVE Urine Nitrite (NEGATIVE) NEGATIVE Urine Bilirubin (NEGATIVE) NEGATIVE Urine Urobilinogen (0.2 - 1.0 EU/dL) 1.0 Ur Leukocyte Esterase (NEGATIVE) NEGATIVE Urine RBC (0 - 1 rbc/hpf) RARE Urine WBC (0 - 1 wbc/hpf) 0-1 Ur Epithelial Cells (0 - 5 EPI/hpf) 0-1 Urine Bacteria (NONE SEEN) NONE SEEN Urine Glucose (NEGATIVE) NEGATIVE Urine Comment CULT NOT INDICATED Microbiology Date/Time Procedure - Status Source Growth 03/16 2118 Group A Streptococcus Rapid Screen - RES THROAT Assessment and Plan Problem List 1. Gastroenteritis Plan -Patient presents with symptoms suggestive of gastroenteritis -Borderline temperature elevation -Mild leukocytosis -Continue with IV fluid therapy, begin clear liquid diet -Antiemetics as necessary -Monitor 2. Intractable nausea and vomiting Status Acute Onset Date Unknown Plan -Patient presents with intractable nausea and vomiting -Symptoms much improved -Continue antiemetics/IV fluids -Begin clear liquid diet as noted above 3. Hyperbilirubinemia Status Acute Onset Date Unknown Plan -Patient presents with findings of mild hyperbilirubinemia -Findings suggestive of Gilbert syndrome -Recheck this a.m. Current status: Fair, improved Anticipated discharge date: Anticipated discharge this p.m. or in a.m. Anticipated discharge placement: Home Patient care time: Time in chart review, patient interview, physical exam, CPOE, and care documentation: 25 mins Visit to patient today: 1 Complexity of care: Moderate DVT prophylaxis: SCD E&M Codes Rounding: Obsv-Comp/Moderate/[id number]
[2017-03-17 10:39] VITALS: BP 126/63
--- NOTE | 2017-03-17 12:06 | ED DISCHARGE INSTRUCTIONS ---
Patient: LYNDA VUONG General Instructions [facility] VisitID: [id number] [address] [place] [address] 21y, F Registration Date/Time: 03/16/2017 Vomiting with nausea (irretractable). No dehydration or volume depletion. Not intractable or bilious. (Electronically signed by Vandana Vega A.R.N.P. 03/17/2017 12:05)
--- NOTE | 2017-03-17 12:06 | ED MED RECONCILIATION SUMMARY ---
Patient: LYNDA VUONG Medication Reconciliation Report [facility] VisitID: [id number] [place] [address] 21y, F Registration Date/Time: 03/16/2017 Weight: 99.7 kg Height/Length: 70 in. BMI: 31.5 ALLERGIES: No Known Drug Allergy The patient's Home Medications are listed below: NONE. The source(s) of the original Home Medication information: Not obtained. The following Medications were given to the patient in the Emergency Department: IV NS IV Fluids bolus 0, then 1000 mL/hr, administered: 03/16/2017 7:27:00 PM Zofran [IVP] IVP 4 mg, administered: 03/16/2017 7:27:00 PM Zofran [IVP] IVP 4 mg, administered: 03/16/2017 7:40:00 PM Toradol [IVP] IVP 30 mg, administered: 03/16/2017 8:00:00 PM Reglan [IVP] IVP 10 mg, administered: 03/16/2017 8:58:00 PM Morphine [IVP] IVP 4 mg, administered: 03/16/2017 9:25:00 PM PHENERGAN [IVP] IVP 12.5 mg, administered: 03/16/2017 9:27:00 PM The following Medications were prescribed to the patient: None.
--- NOTE | 2017-03-17 12:06 | ED DISCHARGE INSTRUCTIONS ---
Patient: LYNDA VUONG General Instructions [facility] VisitID: [id number] [address] [place] [address] 21y, F Registration Date/Time: 03/16/2017 Vomiting with nausea (irretractable). No dehydration or volume depletion. Not intractable or bilious. (Electronically signed by Vandana Vega A.R.N.P. 03/17/2017 12:05)
--- NOTE | 2017-03-17 12:06 | ED MAR SUMMARY ---
..... Medication Administration Record [facility] [address] [place] [address] Patient: LYNDA VUONG Visit ID: [id number] 21y, F Weight: 99.7 kg Height/Length: 70 in BMI: 31.5 ALLERGIES: No Known Drug Allergy Start 19:03/16/2017 Marilee Gallegos,, Stop 21:03/16/2017 Kayy Bullard R.N. Medication Administered: IV NS (SALINE), Dose: IV Fluids over 1 hour(s), Rate: 1000 mL/hr, Dispensed: 1000 mL bag, Site: #1 right AC. Medication Ordered: IV NS : initial bolus 1000 mL (1000 mL/hr), then 1000 mL/hr for X1 (NOW). Given :03/16/2017 Kayy Bullard R.N. Medication Administered: ZOFRAN [IVP] (ONDANSETRON HCL), Dose: 4 mg IVP over 2 minute(s), Site: #1 right AC. Medication Ordered: Zofran IV 4 mg (NOW). Given 19:40 03/16/2017 Kayy Bullard R.N. Medication Administered: ZOFRAN [IVP] (ONDANSETRON HCL), Dose: 4 mg IVP over 2 minute(s), Site: #1 right AC. Medication Ordered: Zofran IV 4 mg (NOW). Given 20:00 03/16/2017 Kayy Bullard R.N. Medication Administered: TORADOL [IVP], Dose: 30 mg IVP over 2 minute(s), Site: #1 right AC. Medication Ordered: Toradol IV 30 mg (NOW). Given 20:58 03/16/2017 Kayy Bullard R.N. Medication Administered: REGLAN [IVP] (METOCLOPRAMIDE HCL), Dose: 10 mg IVP over 2 minute(s), Site: #2 left AC. Medication Ordered: Reglan IV 10 mg (NOW). Given 21:25 03/16/2017 Kayy Bullard R.N. Medication Administered: MORPHINE [IVP], Dose: 4 mg IVP over 2 minute(s), Site: #2 left AC. Medication Ordered: Morphine IV 4 mg (HIGH ALERT MEDICATION, NOW). Given 21:27 03/16/2017 Kayy Bullard R.N. Medication Administered: PHENERGAN [IVP] (PROMETHAZINE HCL), Dose: 12.5 mg IVP over 4 minute(s), Site: #2 left AC. Medication Ordered: Phenergan IV 12.5 mg (HIGH ALERT MEDICATION, NOW).
--- NOTE | 2017-03-17 12:06 | ED MED RECONCILIATION SUMMARY ---
Patient: LYNDA VUONG Medication Reconciliation Report [facility] VisitID: [id number] [place] [address] 21y, F Registration Date/Time: 03/16/2017 Weight: 99.7 kg Height/Length: 70 in. BMI: 31.5 ALLERGIES: No Known Drug Allergy The patient's Home Medications are listed below: NONE. The source(s) of the original Home Medication information: Not obtained. The following Medications were given to the patient in the Emergency Department: IV NS IV Fluids bolus 0, then 1000 mL/hr, administered: 03/16/2017 7:27:00 PM Zofran [IVP] IVP 4 mg, administered: 03/16/2017 7:27:00 PM Zofran [IVP] IVP 4 mg, administered: 03/16/2017 7:40:00 PM Toradol [IVP] IVP 30 mg, administered: 03/16/2017 8:00:00 PM Reglan [IVP] IVP 10 mg, administered: 03/16/2017 8:58:00 PM Morphine [IVP] IVP 4 mg, administered: 03/16/2017 9:25:00 PM PHENERGAN [IVP] IVP 12.5 mg, administered: 03/16/2017 9:27:00 PM The following Medications were prescribed to the patient: None.
--- NOTE | 2017-03-17 12:06 | ED MAR SUMMARY ---
..... Medication Administration Record [facility] [address] [place] [address] Patient: LYNDA VUONG Visit ID: [id number] 21y, F Weight: 99.7 kg Height/Length: 70 in BMI: 31.5 ALLERGIES: No Known Drug Allergy Start 19:03/16/2017 Marilee Gallegos,, Stop 21:03/16/2017 Kayy Bullard R.N. Medication Administered: IV NS (SALINE), Dose: IV Fluids over 1 hour(s), Rate: 1000 mL/hr, Dispensed: 1000 mL bag, Site: #1 right AC. Medication Ordered: IV NS : initial bolus 1000 mL (1000 mL/hr), then 1000 mL/hr for X1 (NOW). Given :03/16/2017 Kayy Bullard R.N. Medication Administered: ZOFRAN [IVP] (ONDANSETRON HCL), Dose: 4 mg IVP over 2 minute(s), Site: #1 right AC. Medication Ordered: Zofran IV 4 mg (NOW). Given 19:40 03/16/2017 Kayy Bullard R.N. Medication Administered: ZOFRAN [IVP] (ONDANSETRON HCL), Dose: 4 mg IVP over 2 minute(s), Site: #1 right AC. Medication Ordered: Zofran IV 4 mg (NOW). Given 20:00 03/16/2017 Kayy Bullard R.N. Medication Administered: TORADOL [IVP], Dose: 30 mg IVP over 2 minute(s), Site: #1 right AC. Medication Ordered: Toradol IV 30 mg (NOW). Given 20:58 03/16/2017 Kayy Bullard R.N. Medication Administered: REGLAN [IVP] (METOCLOPRAMIDE HCL), Dose: 10 mg IVP over 2 minute(s), Site: #2 left AC. Medication Ordered: Reglan IV 10 mg (NOW). Given 21:25 03/16/2017 Kayy Bullard R.N. Medication Administered: MORPHINE [IVP], Dose: 4 mg IVP over 2 minute(s), Site: #2 left AC. Medication Ordered: Morphine IV 4 mg (HIGH ALERT MEDICATION, NOW). Given 21:27 03/16/2017 Kayy Bullard R.N. Medication Administered: PHENERGAN [IVP] (PROMETHAZINE HCL), Dose: 12.5 mg IVP over 4 minute(s), Site: #2 left AC. Medication Ordered: Phenergan IV 12.5 mg (HIGH ALERT MEDICATION, NOW).
[2017-03-17 14:29] VITALS: BP 115/63
--- NOTE | 2017-03-17 14:58 | Discharge Summary ---
Discharge Summary Report Admit Date 03/16/17 Discharge Date 03/17/17 Admission Diagnosis 1. Gastroenteritis 2. Intractable nausea and vomiting 3. Hyperbilirubinemia Discharge Diagnosis 1. Gastroenteritis 2. Intractable nausea and vomiting 3. Hyperbilirubinemia Brief History The patient is a 21-year-old white female with a significant past mental history of cholelithiasis status post cholecystectomy, illicit drug use-marijuana who presented to [facility] emergency department secondary to intractable nausea and vomiting. [facility] ER evaluation was consistent with gastroenteritis with intractable nausea and vomiting, dehydration. Secondary to the above, the patient was admitted by Jordi Quick M.D. for further evaluation and treatment. For other history present illness, past medical history, family history, social history, review of systems, and admission physical examination please see the patient's history and physical examination and ER visit note in the patient's medical record. Hospital Course The following problems and their management were noted during the patient's hospitalization: 1. Gastroenteritis The patient presented with findings of gastroenteritis with nausea, vomiting, and dehydration. Her symptoms subsided rapidly following admission. On the day of discharge the patient was taking well orally clear liquid diet without problems. She requested discharged at this time. She was afebrile. She'll follow up with her PCP this week. I've recommended patient follow-up with the GI secondary to several month history of recurrent emesis of unknown etiology. She will schedule an appointment with her PCP this week. 2. Intractable nausea and vomiting Resolved. Reglan when necessary post discharge 3. Hyperbilirubinemia-resolved Patient presented with mild hyperbilirubinemia. This resolved without therapy during her hospital stay. This most likely represents Gilbert's syndrome. Outpatient follow-up with PCP. Lab/Imaging Laboratory Tests 03/17 03/16 03/16 0550 9991 1338 Chemistry Plasma Sodium (136 - 145 mmol/L) 145 Plasma Potassium (3.5 - 5.1 mmol/L) 3.9 Plasma Chloride (98 - 107 mmol/L) 110 CO2 (Enzymatic) (21 - 32 mmol/L) 26 BUN (7 - 18 mg/dL) 13 Creatinine (0.6 - 1.3 mg/dL) 0.7 Est GFR ( Amer) (mL/min) >60 Est GFR (Non-Af Amer) (mL/min) >60 Glucose (70 - 110 mg/dL) 122 Plasma Calcium (8.5 - 10.1 mg/dL) 8.3 Plasma Magnesium (1.8 - 2.4 mg/dL) 2.0 Total Bilirubin (0.0 - 1.0 mg/dL) 0.9 Direct Bilirubin (0 - 0.3 mg/dL) 0.2 AST (15 - 37 U/L) 4 ALT (12 - 78 U/L) 14 Alkaline Phosphatase (46 - 116 U/L) 41 Total Protein (6.4 - 8.2 g/dL) 5.9 Albumin (3.3 - 5.0 g/dL) 3.4 Hematology WBC (4.5 - 11.5 K/uL) 13.7 RBC (4.00 - 5.20 M/uL) 4.58 Hgb (12.0 - 16.0 gm/dL) 13.4 Hct (36.0 - 46.0 %) 40.8 MCV (80 - 100 fL) 89 MCH (26 - 34 pg) 29 RDW (11.6 - 14.8 %) 14.9 Neut % (Auto) (50 - 75 %) 79.8 Lymph % (Auto) (25 - 40 %) 14.0 [place] % (Auto) (3 - 14 %) 5.5 Eos % (Auto) (0 - 4 %) 0.2 Baso % (Auto) (0 - 2 %) 0.5 Plt Count, EDTA (150 - 400 K/uL) 429 PUBS MCHC (31 - 37 g/dL) 33 Toxicology Urine Opiates Screen (NEGATIVE) NEGATIVE Urine Methadone Screen (NEGATIVE) NEGATIVE Ur Barbiturates Screen (NEGATIVE) NEGATIVE U Amphetamin/Meth Scrn (NEGATIVE) NEGATIVE MDMA (Ecstasy) Screen (NEGATIVE) NEGATIVE U Benzodiazepines Scrn (NEGATIVE) NEGATIVE Urine Cocaine Screen (NEGATIVE) NEGATIVE U Cannabinoids Screen (NEGATIVE) POSITIVE Urines Urine Test NEGATIVE 03/16 03/16 03/16 2118 1935 1925 Chemistry Plasma Sodium (136 - 145 mmol/L) 143 Plasma Potassium (3.5 - 5.1 mmol/L) 3.5 Plasma Chloride (98 - 107 mmol/L) 104 CO2 (Enzymatic) (21 - 32 mmol/L) 27 BUN (7 - 18 mg/dL) 12 Creatinine (0.6 - 1.3 mg/dL) 0.9 Est GFR ( Amer) (mL/min) >60 Est GFR (Non-Af Amer) (mL/min) >60 Glucose (70 - 110 mg/dL) 89 Plasma Calcium (8.5 - 10.1 mg/dL) 9.2 Total Bilirubin (0.0 - 1.0 mg/dL) 1.5 AST (15 - 37 U/L) 6 ALT (12 - 78 U/L) 17 Alkaline Phosphatase (46 - 116 U/L) 53 Total Protein (6.4 - 8.2 g/dL) 8.0 Albumin (3.3 - 5.0 g/dL) 4.4 Amylase (25 - 115 U/L) 60 Lipase (73 - 393 U/L) 140 Beta HCG, Quant (mIU/mL) TNP Coagulation INR (0.8 - 1.2) 1.1 Hematology WBC (4.5 - 11.5 K/uL) 12.9 RBC (4.00 - 5.20 M/uL) 5.42 Hgb (12.0 - 16.0 gm/dL) 16.1 Hct (36.0 - 46.0 %) 48.2 MCV (80 - 100 fL) 89 MCH (26 - 34 pg) 30 RDW (11.6 - 14.8 %) 14.7 Neut % (Auto) (50 - 75 %) 75.1 Lymph % (Auto) (25 - 40 %) 17.3 [place] % (Auto) (3 - 14 %) 5.1 Eos % (Auto) (0 - 4 %) 1.6 Baso % (Auto) (0 - 2 %) 0.9 Plt Count, EDTA (150 - 400 K/uL) 578 PUBS MCHC (31 - 37 g/dL) 33 Serology Monoscreen (NEGATIVE) NEGATIVE Urines Urine Color YELLOW Urine Appearance TURBID Urine pH (5.0 - 8.0) 8.5 Ur Specific [place] (1.010 - 1.030) 1.010 Urine Protein (NEGATIVE) NEGATIVE Urine Ketones (NEGATIVE) 2+ Urine Blood (NEGATIVE) NEGATIVE Urine Nitrite (NEGATIVE) NEGATIVE Urine Bilirubin (NEGATIVE) NEGATIVE Urine Urobilinogen (0.2 - 1.0 EU/dL) 1.0 Ur Leukocyte Esterase (NEGATIVE) NEGATIVE Urine RBC (0 - 1 rbc/hpf) RARE Urine WBC (0 - 1 wbc/hpf) 0-1 Ur Epithelial Cells (0 - 5 EPI/hpf) 0-1 Urine Bacteria (NONE SEEN) NONE SEEN Urine Glucose (NEGATIVE) NEGATIVE Urine Comment CULT NOT INDICATED Microbiology Date/Time Procedure - Status Source Growth 03/16 2118 Group A Streptococcus Rapid Screen - RES THROAT Discharge Instructions/Meds For other recommendations regarding discharge diet, activity, followup, and discharge medications please see the patient's discharge instructions. Discharge condition: Fair, improved Greater than 30 min. was spent in the patient's discharge preparation including discharge interview and physical examination, progress note, discharge instructions, and discharge summary The patient was interviewed and examined on the day of discharge. E&M Codes Discharge: Observation - All/[id number]
[2017-03-17] MEDS ORDERED: PROTONIX40 MG PO (15:00)
[2017-03-17] MEDS ORDERED: REGLAN10 MG PO (15:00)
[2017-03-17] MEDS ORDERED: NICOTINE T7 MG/24 HR TOP (15:00)
--- NOTE | 2017-03-17 15:03 | Provider's Discharge Care Plan ---
Problem, Goal, Plan Problem List 1. Intractable nausea and vomiting Goals: Improve disease control, Prevent disease progress Instructions: Follow up as directed, Take meds as directed, Take Protonix 40 mg orally daily. Use Reglan 10 mg orally 4 times a day when necessary for nausea. Follow-up with your doctor next week to schedule evaluation by machine zipper trimmer.
--- NOTE | 2017-03-17 15:03 | Provider's Discharge Care Plan ---
Problem, Goal, Plan Problem List 1. Intractable nausea and vomiting Goals: Improve disease control, Prevent disease progress Instructions: Follow up as directed, Take meds as directed, Take Protonix 40 mg orally daily. Use Reglan 10 mg orally 4 times a day when necessary for nausea. Follow-up with your doctor next week to schedule evaluation by blade bender furnace tender.
== END 2017-03-17 15:58 | disposition home or self-care (01) ==
LOC: ED SRH 19:12 → TRANS SRH 21:54 → ACUTE2 SRH 21:54
PROVIDERS: ADMIT Emergency Medicine
DX: E86.0 Dehydration (principal); K52.9 Noninfective gastroenteritis and colitis, unspecified; R11.2 Nausea with vomiting, unspecified; E80.6 Other disorders of bilirubin metabolism; F17.210 Nicotine dependence, cigarettes, uncomplicated; F12.90 Cannabis use, unspecified, uncomplicated; Z71.6 Tobacco abuse counseling
CPT/HCPCS: 29230; 29259; 29262; 29264; 90004; 90047; 90074; 90100; 90154; 90159; 90627; 92235; 92530; 92710; 92720; 92760; 92761; 92762; 92763; 92764; 92765; 92766; 92767; 93070; 94060; 95059; 98370